=== PATIENT | male | born 1990 | race Caucasian/White ===

== ENCOUNTER 2018-12-04 09:41 | Emergency (ER) | payer BC, OTHER ==
[2018-12-04 09:55] VITALS: BP 152/86
--- NOTE | 2018-12-04 10:36 | UC ---
UC General HPI - HPI Summary HPI Summary: Concern for rash on tip of penis. States he noticed it 2 weeks ago. Sometimes itchy but not much. He was stationed in [employer] at the time - he was seen there for same problem and given an antibiotic for 10 days that he just finished about 3 days ago. He was having unprotected sex with his girlfriend with whom he is no longer together with. No fever. No dysuria or urgency. No N /V/D. No other rash. No penile discharge. No joint aches. Meds: REviewed - History of Current Complaint Chief Complaint: UCRash Stated Complaint: PERSONAL RASH Time Seen by Provider: 12/04/18 10:14 Pain Intensity: 0 - Allergy/Home Medications Allergies/Adverse Reactions: Allergies Allergy/AdvReac Type Severity Reaction Status Date / Time No Known Allergies Allergy Verified 12/04/18 09:55 Home Medications: Home Medications NK [No Home Medications Reported] 12/04/18 [History Confirmed 12/04/18] PMH/Surg Hx/FS Hx/Imm Hx Previously Healthy: Yes - Surgical History Surgical History: None - Social History Alcohol Use: Weekly Substance Use Type: None Smoking Status (MU): Current Some Day Smoker Type: Cigarettes Review of Systems All Other Systems Reviewed And Are Negative: Yes Skin: Positive: Negative Physical Exam Triage Information Reviewed: Yes Appearance: Well-Appearing Vital Signs: Initial Vital Signs Temp 98.5 F 12/04/18 09:50 Pulse 72 12/04/18 09:50 Resp 18 12/04/18 09:50 BP 152/86 12/04/18 09:50 Pulse Ox 100 12/04/18 09:50 Eyes: Positive: Conjunctiva Clear Skin: Positive: Other - erythematous nonulcerative lesion at tip of penis. No rash elsewhere. No drainage. Course/Dx - Course Course Of Treatment: This is a 28 yr old male with painless rash on tip of penis Assessment Screening for STI Syphilis, GC/C, Hep C and HIV studies sent off Plan We will contact you if any of your results are positive Recommend using protection with condoms or abstaining from sexual contact until results are back If symptoms persist or worsen, despite negative results, recommend further follow up, consider follow up with dermatology - Diagnoses Provider Diagnosis: STI (sexually transmitted infection), Rash Discharge - Sign-Out/Discharge Documenting (check all that apply): Patient Departure All imaging exams completed and their final reports reviewed: No Studies - Discharge Plan Condition: Fair Disposition: HOME Referrals: Denisse Villa MD [Primary Care Provider] - Additional Instructions: We will contact you if any of your results are positive Recommend using protection with condoms or abstaining from sexual contact until results are back If symptoms persist or worsen, despite negative results, recommend further follow up, consider follow up with dermatology - Billing Disposition and Condition Condition: FAIR Disposition: Home
[2018-12-05 09:48] LABS: Hepatitis C Antibody Nonreactive (Nonreactive)
[2018-12-05 11:48] LABS: Neisseria gonorrhoeae (GC) RNA Negative (Negative)
--- NOTE | 2018-12-05 14:27 | UC ---
- Progress Note Progress Note: URINE TEST FOR GONORRHEA AND CHLAMYDIA POSITIVE FOR CHLAMYDIA. NEGATIVE FOR GONORRHEA. PATIENT WAS NOT TREATED HERE IN THE OFFICE. 1G AZITHROMYCIN SENT TO [facility]. PLEASE CALL PATIENT AND NOTIFY THAT HE MUST TAKE THIS MEDICATION. NO SEX FOR AT LEAST 7 DAYS. HE MUST NOTIFY ALL HIS SEXUAL PARTNERS. ADVISED TO ALWAYS USE BARRIER METHODS OF CONTRACEPTION TO AVOID STD TRANSMISSION IN THE FUTURE. Course/Dx - Diagnoses Provider Diagnoses: STI (sexually transmitted infection), Rash Discharge - Sign-Out/Discharge Documenting (check all that apply): Post-Discharge Follow Up All imaging exams completed and their final reports reviewed: No Studies - Discharge Plan Condition: Fair Disposition: HOME Prescriptions: Azithromycin 1,000 mg PO DAILY #2 tab Referrals: Denisse Villa MD [Primary Care Provider] - Additional Instructions: We will contact you if any of your results are positive Recommend using protection with condoms or abstaining from sexual contact until results are back If symptoms persist or worsen, despite negative results, recommend further follow up, consider follow up with dermatology - Billing Disposition and Condition Condition: FAIR Disposition: Home
== END 2018-12-04 10:55 | disposition home or self-care (01) ==
LOC: UCEAST 09:41
DX: A56.8 Sexually transmitted chlamydial infection of other sites (principal); R21 Rash and other nonspecific skin eruption; Z11.3 Encounter for screening for infections with a predominantly sexual mode of transmission; Z72.0 Tobacco use
CPT/HCPCS: 36415; 86703; 86780; 86803; 87491; 87591; 99201; G0463

== ENCOUNTER 2018-12-10 16:03 | Emergency (ER) | payer OTHER ==
[2018-12-10 16:24] VITALS: BP 149/85
--- NOTE | 2018-12-10 16:40 | UC ---
Complaint Male HPI - HPI Summary HPI Summary: 28 yo male presents with penile irritation. He tells me that he was seen here about a week ago and tested positive for chlamydia. He was rx'd azithromycin 1gm and took this about 5 days ago. His penile discharge has improved, but is still having some burning during urination and skin irritation to the head of his penis. He has not engaged in sexual intercourse since his dx. Denies testicular pain - History of Current Complaint Chief Complaint: UCGU Stated Complaint: URINARY COMPLAINT Time Seen by Provider: 12/10/18 16:39 Hx Obtained From: Patient Onset/Duration: Gradual Onset Severity Currently: None Pain Intensity: 0 - Allergies/Home Medications Allergies/Adverse Reactions: Allergies Allergy/AdvReac Type Severity Reaction Status Date / Time No Known Allergies Allergy Verified 12/10/18 16:24 PMH/Surg Hx/FS Hx/Imm Hx - Additional Past Medical History Additional PMH: None - Surgical History Surgical History: None - Family History Known Family History: Positive: None - Social History Occupation: Employed Full-time Lives: Alone Alcohol Use: Occasionally Substance Use Type: None Smoking Status (MU): Never Smoked Tobacco Type: Cigarettes Review of Systems All Other Systems Reviewed And Are Negative: Yes Constitutional: Positive: Negative Skin: Positive: Negative Respiratory: Positive: Negative Cardiovascular: Positive: Negative Gastrointestinal: Positive: Negative Genitourinary: Positive: Dysuria Neurological: Positive: Negative Psychological: Positive: Negative Physical Exam - Summary Physical Exam Summary: GENERAL: NAD. WDWN. No pain distress. SKIN: No rashes, sores, lesions, or open wounds. NECK: Supple. Nontender. No lymphadenopathy. CHEST: CTAB. No r/r/w. No accessory muscle use. Breathing comfortably and in no distress. CV: RRR. Without m/r/g. Pulses intact. Cap refill <2seconds ABDOMEN: Soft. NTTP. No distention or guarding. No CVA tenderness. Bowel sounds present NEURO: Alert. PSYCH: Age appropriate behavior. Triage Information Reviewed: Yes Vital Signs: Initial Vital Signs Temp 99.1 F 12/10/18 16:20 Pulse 66 12/10/18 16:20 Resp 16 12/10/18 16:20 BP 149/85 12/10/18 16:20 Pulse Ox 98 12/10/18 16:20 Vital Signs Reviewed: Yes Male Genital Exam: Positive: No Hernia, Urethral Discharge - scant yellow. Negative: Epididymal Tenderness, Inguinal Tenderness, Scrotum Tenderness (R), Scrotum Tenderness (L), Testicular Tenderness (R), Testicular Tenderness (L) Complaint Male Course/Dx - Course Course Of Treatment: It is possible that he requires a longer duration of treatment for his chlamydia due to potential strain resistance or advanced infection, therefore will place him on doxycycline for 1 week and have him refrain from sexual activity. F/u if symptoms do not improve. - Differential Dx/Diagnosis Provider Diagnosis: Chlamydia Discharge - Sign-Out/Discharge Documenting (check all that apply): Patient Departure All imaging exams completed and their final reports reviewed: No Studies - Discharge Plan Condition: Stable Disposition: HOME Prescriptions: DOXYcycline CAP(*) [DOXYcycline 100MG CAP(*)] 100 mg PO BID #14 cap Patient Education Materials: Chlamydia (ED) Referrals: Denisse Villa MD [Primary Care Provider] - Additional Instructions: If you develop a fever, shortness of breath, chest pain, new or worsening symptoms - please call your PCP or go to the ED immediately. Your blood pressure was high at todays visit. Please see your primary provider within 4 weeks for recheck and re-evaluation. 1) Please do not engage in sexual activity until your symptoms have completely resolved. - Billing Disposition and Condition Condition: STABLE Disposition: Home
== END 2018-12-10 16:55 | disposition home or self-care (01) ==
LOC: UCEAST 16:03
DX: A74.9 Chlamydial infection, unspecified (principal)
CPT/HCPCS: 99212; G0463

== ENCOUNTER 2018-12-13 12:15 | Emergency (ER) | payer OTHER ==
[2018-12-13 12:33] VITALS: BP 140/59
--- NOTE | 2018-12-13 12:44 | UC ---
General HPI - HPI Summary HPI Summary: Pt presents to with 2 concerns: 1 ) pt was doing yard work yesterday. This am noted tick on chest. Pt did not try to remove. Pt confident attached < 24 hours 2) Pt was diagnes with chlamydia on 12/04/18. Pt took 1 gram zithromax on 12/05. Pt continues to have mild dysuria and sensitiviy. Was evaluated on 12/10. Pt was re-evaluated and started on Doxycycline 100mg BID. Pt states 12 hours after first dose developed a rash head, chest, abd back. Pt has continued to take doxy and rash persists. No sob, facial swelling, difficulty breathing or any other complaints. Dysuria has improved - still very mild, intermittent. no testicular pain, back pain, rectal pain. No hematuria, no discharge. Pt tested neg for gonorhea, HIV, hep C - History of Current Complaint Chief Complaint: UCSkin Stated Complaint: TICK Time Seen by Provider: 12/13/18 12:43 Hx Obtained From: Patient, Medical Records Onset/Duration: Gradual Onset Timing: Constant Pain Intensity: 0 - Allergy/Home Medications Allergies/Adverse Reactions: Allergies Allergy/AdvReac Type Severity Reaction Status Date / Time doxycycline Allergy Intermediate full body Verified 12/13/18 14:23 rash PMH/Surg Hx/FS Hx/Imm Hx Previously Healthy: Yes - Surgical History Surgical History: None - Family History Known Family History: Positive: None, Non-Contributory - Social History Occupation: Employed Full-time - [employer] Lives: With Family Alcohol Use: Occasionally Substance Use Type: None Smoking Status (MU): Never Smoked Tobacco Type: Cigarettes Review of Systems All Other Systems Reviewed And Are Negative: Yes Constitutional: Positive: Negative Skin: Positive: Rash Physical Exam - Summary Physical Exam Summary: Vital Signs Reviewed: Yes A+Ox3, no distress Eyes: Conjunctiva Clear, JD. EOM intact and full ENT: Hearing grossly normal TM x 2 clear, mmoist, uvula midline, no exudate, no erythema Neck: Positive: Supple Respiratory: Positive: No respiratory distress, No accessory muscle use + CTA throughout no w/r Cardiovascular: RRR nl s1, s2 no m/r CBT <2 sec abd soft + BS nt/nd no guarding, no distension, no CVA Musculoskeletal Exam: NICOLE x 4 without difficulty Strength Intact, ROM Intact Neurological: Positive: Alert, + sensation throughout Psychological: Positive: Normal Response To Family Skin: Positive: fine, difuse, macular rash - c/w drug rash, no ecchymosis, pt with partially embedded tick sternum - not engorged Triage Information Reviewed: Yes Vital Signs: Initial Vital Signs Temp 98.8 F 12/13/18 12:24 Pulse 75 12/13/18 12:24 Resp 18 12/13/18 12:24 BP 140/59 12/13/18 12:24 Pulse Ox 98 12/13/18 12:24 Course/Dx - Course Course Of Treatment: Tick: Easily removed intact and alive with tick twister - gave remover to pt - no retained part noted under magnification. Pt tolerated well. Tdap utd No prophylaxis Regarding dysuria/rash Concern for allergic reaction to Doxy - recommend d/c Pt sx nearly resolved but second course note complete. Unsure if should initiate treatment with fluoroquinolone - hesistant related to tendonopathy and in . Hesitant to retest as an amplification test and possible false + Dr. Lebron not available for consulte, PATTERN ROOM ATTENDANT not available Spoke with [facility]- requested I talk to the [facility] provider line Spoke with a Dr. Parker - recommend stop all treatment - advised likely fully treated for Chlamydia with zithromax and doxy recommend test for trich if trich + then treat it trich neg - not treatment x 7 days. If any sx at 7 days then 7 day course of Moxi - I sent Rx pt comfortable and in agreement with plen recommend no intercourse and definitie condom if does return precautions pt comfortable and in agreement with plan Doxy allergy updated in records For your Chlamydia: - It appears you've had an allergic reaction to doxycycline. This should be listed as an allergy future medical appointments. The recommendations according to the nearest Department of health specialists and sexual transmitted infections is as follows; 1) we will stop all antibiotic treatments today. You have likely received adequate antibiotic treatment for your Chlamydia between the Zithromax and the 3 days of doxycycline the you have taken 2) we are testing her urine today for a different sexually transmitted disease called trichomonas. You have not yet been tested for this. This result takes 24-48 hours to come back. If you need treatment for this you will receive a call from a care steam gigger. A prescription will be called in to your pharmacy for your at this time. 3) you have been given a prescription for moxifloxacin. This is an antibiotic that you may start next Monday (12/19/18) if you have any recurrent or ongoing symptoms. This antibiotic will cover all of the sexual transmitted diseases that could be causing your symptoms. Please note that it may take several days for your symptoms to completely resolve. It is recommended you stay hydrated. Drink plenty of nonalcoholic, non-caffeinated beverages. Okay to take Motrin or Tylenol as needed for pain. It is okay to use hydrocortisone as previously instructed for discomfort or inflammation. If you develop abdominal pain, fever. vomiting, or any other concern you should be reevaluated. - Diagnoses Provider Diagnosis: Tick bite, Drug rash, Dysuria Discharge - Sign-Out/Discharge Documenting (check all that apply): Patient Departure All imaging exams completed and their final reports reviewed: No Studies - Discharge Plan Condition: Stable Disposition: HOME Prescriptions: Moxifloxacin HCl [Avelox] 400 mg PO DAILY #7 tablet Patient Education Materials: Nonspecific Urethritis in Men (ED), Tick Bite (ED) , Antibiotic Medication Allergy (ED) Referrals: No Primary Care Phys,NOPCP [Primary Care Provider] - Additional Instructions: For your tick bite: Keep area clean and dry Check yourself daily for ticks after you have [place] Contact your doctor or return with questions or concerns Approach to prophylaxis : According to the Infectious Diseases Society of [place] (IDSA) guidelines that recommend antibiotic prophylaxis only in patients who meet all of the following criteria: 1. Attached tick identified as an adult or nymphal I. scapularis tick (deer tick). 2. Tick is estimated to have been attached for 36 hours (by degree of engorgement or time of exposure). 3. Prophylaxis is begun within 72 hours of tick removal. Local rate of infection of ticks with B. burgdorferi is 20 percent if attached for over 48 hours (these rates of infection have been shown to occur in parts of [place], parts of the [facility], and parts of [place] and [place]). If you experience a tick and time of attachment is believed to be less than 36 hours, you may remove the tick with head intact and no need for prophylaxis. If over 36 hours, please come into UC. For your Chlamydia: - It appears you've had an allergic reaction to doxycycline. This should be listed as an allergy future medical appointments. The recommendations according to the nearest a Department of health specialists and sexual transmitted infections is as follows; 1) we will stop all antibiotic treatments today. You have likely received adequate antibiotic treatment for your Chlamydia between the Zithromax and the 3 days of doxycycline the you have taken 2) we are testing her urine today for a different sexually transmitted disease called trichomonas. You have not yet been tested for this. This result takes 24-48 hours to come back. If you need treatment for this you will receive a call from a care steam gigger. A prescription will be called in to your pharmacy for your at this time. 3) you have been given a prescription for moxifloxacin. This is an antibiotic that you may start next Monday (12/19/18) if you have any recurrent or ongoing symptoms. This antibiotic will cover all of the sexual transmitted diseases that could be causing your symptoms. Please note that it may take several days for your symptoms to completely resolve. It is recommended you stay hydrated. Drink plenty of nonalcoholic, non-caffeinated beverages. Okay to take Motrin or Tylenol as needed for pain. It is okay to use hydrocortisone as previously instructed for discomfort or inflammation. If you develop abdominal pain, fever. vomiting, or any other concern you should be reevaluated. - Billing Disposition and Condition Condition: STABLE Disposition: Home
[2018-12-17 16:52] LABS: Trichomonas vaginalis SOURCE: Urine (Male Patient)
== END 2018-12-13 14:30 | disposition home or self-care (01) ==
LOC: UCCORT 12:15
DX: S20.369A Insect bite (nonvenomous) of unspecified front wall of thorax, initial encounter (principal); A74.9 Chlamydial infection, unspecified; W57.XXXA Bitten or stung by nonvenomous insect and other nonvenomous arthropods, initial encounter; Y93.H2 Activity, gardening and landscaping; Y92.017 Garden or yard in single-family (private) house as the place of occurrence of the external cause; L27.1 Localized skin eruption due to drugs and medicaments taken internally; T36.4X5A Adverse effect of tetracyclines, initial encounter; Y92.019 Unspecified place in single-family (private) house as the place of occurrence of the external cause; Z88.1 Allergy status to other antibiotic agents
CPT/HCPCS: 87661; 99212; G0463